=== PATIENT | female | born 1955 | race Caucasian/White ===

== ENCOUNTER 2016-08-04 15:45 | Emergency (ER) | payer SELFPAY ==
[~2016-08-04] VITALS: Ht 154.9 cm; Wt 93.0 kg
[~2016-08-04 15:45] MED LIST: ADDERALL 10 MG10 MG PO; CLINDAMYCIN HC300 MG PO; DOXYCYCLINE100 M3 PO; FEOSOL200 MG PO; LEXAPRO10 MG PO; LORAZEPAM0.5 MG PO
[2016-08-04] MEDS ORDERED: CLINDAMYCIN HC300 MG PO (16:22)
== END 2016-08-04 16:25 | disposition home or self-care (01) ==
LOC: ED 15:45
DX: L03.115 Cellulitis of right lower limb (principal); Z88.0 Allergy status to penicillin

== ENCOUNTER → 2017-03-24 | Outpatient (CLI) | payer OTHER | END | disposition home or self-care (01) | LOC: CARD 12:56 | DX: I10 Essential (primary) hypertension (principal) ==

== ENCOUNTER 2017-06-13 15:20 | Inpatient (IN) | payer OTHER ==
[~2017-06-13] VITALS: Ht 154.9 cm; Wt 79.8 kg
[2017-06-13 15:40] VITALS: BP 125/57
[2017-06-13 16:10] VITALS: BP 130/72
[2017-06-13 16:59] LABS: BASO % 0.8 % (0.0-1.0); EOS # 0.1 10*3/uL (0.0-0.4); EOS % 2.3 % (1.0-4.0); HEMATOCRIT 29.9 % (37.0-47.0); HEMOGLOBIN 10.1 g/dl (12.0-16.0); LYMPH # 1.7 10*3/uL (1.3-4.4); MEAN CELL VOLUME 97.7 fl (81.0-99.0); MEAN CORPUSCULAR HGB CONC 33.8 g/dl (33.0-37.0); MONO # 0.6 10*3/uL (0.1-1.0); MONO % 11.4 % (3.0-9.0); NEUT # 2.7 10*3/uL (2.3-7.9); NEUT % 52.9 % (47.0-73.0); PLATELET COUNT AUTOMATED 69 10*3/uL (130-400); RED BLOOD COUNT 3.06 10*6/uL (4.10-5.10); RED CELL DISTRI WIDTH 15.4 % (0-14.5); WHITE BLOOD COUNT 5.2 10*3/uL (4.8-10.8)
[2017-06-13 17:09] LABS: ACT PARTIAL THROMBO TIME 28.8 SECONDS (20.8-31.5); INTERNATIONAL NORM RATIO 1.1 (2.0-3.5)
[2017-06-13 17:14] LABS: ALBUMIN 2.4 gm/dl (3.1-4.5); ALKALINE PHOSPHATASE 127 U/L (45-117); BUN 16 mg/dl (7-24); CHLORIDE 105 mmol/L (98-107); CREATININE 0.77 mg/dL (0.55-1.02); POTASSIUM 2.8 mmol/L (3.5-5.1); SGOT/AST 167 IU/L (3-35); SGPT/ALT 95 U/L (12-78); SODIUM 142 mmol/L (136-145)
[2017-06-13 17:33] VITALS: BP 128/60
[2017-06-13 18:13] VITALS: BP 123/57
[2017-06-13] MEDS ORDERED: ADDERALL 20 MG20 MG PO (18:46)
[2017-06-13] MEDS ORDERED: HYDROCHLOROTHIA25 M1 PO (18:47)
[2017-06-13] MEDS ORDERED: LASIX20 MG PO (18:47)
[2017-06-13] MEDS ORDERED: IRON325 M1 PO (18:49)
[2017-06-13] MEDS ORDERED: Motrin,Rufen800 MG PO (18:49)
[2017-06-14] VITALS: BP 123/58
[2017-06-14 06:59] LABS: BASO % 0.5 % (0.0-1.0); EOS # 0.1 10*3/uL (0.0-0.4); EOS % 3.1 % (1.0-4.0); HEMATOCRIT 26.2 % (37.0-47.0); HEMOGLOBIN 9.1 g/dl (12.0-16.0); LYMPH # 1.4 10*3/uL (1.3-4.4); LYMPH % 34.9 % (27.0-41.0); MEAN CELL VOLUME 96.7 fl (81.0-99.0); MEAN CORPUSCULAR HGB 33.6 pg (27.0-31.0); MEAN CORPUSCULAR HGB CONC 34.7 g/dl (33.0-37.0); MONO # 0.5 10*3/uL (0.1-1.0); MONO % 12.5 % (3.0-9.0); NEUT # 1.9 10*3/uL (2.3-7.9); NEUT % 48.7 % (47.0-73.0); PLATELET COUNT AUTOMATED 61 10*3/uL (130-400); RED BLOOD COUNT 2.71 10*6/uL (4.10-5.10); RED CELL DISTRI WIDTH 15.3 % (0-14.5); WHITE BLOOD COUNT 3.9 10*3/uL (4.8-10.8)
[2017-06-14 07:35] LABS: ALBUMIN 2.1 gm/dl (3.1-4.5); BUN 16 mg/dl (7-24); CHLORIDE 107 mmol/L (98-107); CHOLESTEROL 114 mg/dL (<200); CREATININE 0.74 mg/dL (0.55-1.02); POTASSIUM 3.3 mmol/L (3.5-5.1); SGOT/AST 148 IU/L (3-35); SODIUM 142 mmol/L (136-145)
[2017-06-14 07:42] LABS: ACT PARTIAL THROMBO TIME 29.7 SECONDS (20.8-31.5); INTERNATIONAL NORM RATIO 1.2 (2.0-3.5)
[2017-06-14 07:44] LABS: ALKALINE PHOSPHATASE 107 U/L (45-117); FREE T4 1.22 ng/dl (0.76-1.46); HDL CHOLESTEROL 28 mg/dl (40-60); LDL CHOLESTEROL 73 mg/dL (9-159); PHOSPHOROUS 2.4 mg/dL (2.5-4.9); SGPT/ALT 80 U/L (12-78); TRIGLYCERIDES 66 mg/dl (<150); VLDL CHOLESTEROL 13 mg/dL (6-40)
[2017-06-14 07:56] LABS: VITAMIN D, 25-HYDROXY 43.6 ng/mL (30-100)
[2017-06-14 08:00] VITALS: BP 124/50
[2017-06-14 12:00] VITALS: BP 115/48
[2017-06-14 16:00] VITALS: BP 128/54
[2017-06-14 20:00] VITALS: BP 120/55
[2017-06-15] VITALS: BP 127/53
[2017-06-15 06:51] LABS: BASO % 0.8 % (0.0-1.0); EOS # 0.2 10*3/uL (0.0-0.4); EOS % 4.2 % (1.0-4.0); HEMATOCRIT 26.1 % (37.0-47.0); HEMOGLOBIN 9.3 g/dl (12.0-16.0); LYMPH # 1.7 10*3/uL (1.3-4.4); LYMPH % 45.1 % (27.0-41.0); MEAN CELL VOLUME 95.3 fl (81.0-99.0); MEAN CORPUSCULAR HGB 33.9 pg (27.0-31.0); MEAN CORPUSCULAR HGB CONC 35.6 g/dl (33.0-37.0); MONO # 0.4 10*3/uL (0.1-1.0); NEUT # 1.5 10*3/uL (2.3-7.9); NEUT % 38.6 % (47.0-73.0); PLATELET COUNT AUTOMATED 58 10*3/uL (130-400); RED BLOOD COUNT 2.74 10*6/uL (4.10-5.10); RED CELL DISTRI WIDTH 15.2 % (0-14.5); WHITE BLOOD COUNT 3.8 10*3/uL (4.8-10.8)
[2017-06-15 07:18] LABS: ALBUMIN 2.2 gm/dl (3.1-4.5); ALKALINE PHOSPHATASE 121 U/L (45-117); BUN 14 mg/dl (7-24); CHLORIDE 106 mmol/L (98-107); CREATININE 0.64 mg/dL (0.55-1.02); POTASSIUM 3.3 mmol/L (3.5-5.1); SGOT/AST 151 IU/L (3-35); SGPT/ALT 82 U/L (12-78); SODIUM 138 mmol/L (136-145); TOTAL PROTEIN 7.2 gm/dL (6.4-8.2)
[2017-06-15 08:00] VITALS: BP 110/58
[2017-06-15] MEDS ORDERED: CLEOCIN HCL300 MG PO (09:18)
== END 2017-06-15 09:56 | disposition home or self-care (01) | DRG 602 ==
LOC: ED 15:20 → EDHOLD 17:06 → 5E 17:06
PROVIDERS: Emergency Medicine; Family Medicine
DX: L03.115 Cellulitis of right lower limb (principal); E43 Unspecified severe protein-calorie malnutrition; D69.6 Thrombocytopenia, unspecified; E87.2 Acidosis; I73.9 Peripheral vascular disease, unspecified; E83.39 Other disorders of phosphorus metabolism; E87.6 Hypokalemia; F90.9 Attention-deficit hyperactivity disorder, unspecified type; B19.20 Unspecified viral hepatitis C without hepatic coma; L40.9 Psoriasis, unspecified; F41.1 Generalized anxiety disorder; F32.9 Major depressive disorder, single episode, unspecified; D64.9 Anemia, unspecified; R74.0 Nonspecific elevation of levels of transaminase and lactic acid dehydrogenase [LDH]; R73.9 Hyperglycemia, unspecified; Z72.0 Tobacco use; Z71.6 Tobacco abuse counseling; Z88.0 Allergy status to penicillin; Z88.8 Allergy status to other drugs, medicaments and biological substances; Z79.2 Long term (current) use of antibiotics; Z79.899 Other long term (current) drug therapy; Z68.33 Body mass index [BMI] 33.0-33.9, adult

== ENCOUNTER 2017-07-03 16:34 | Emergency (ER) | payer OTHER ==
[~2017-07-03] VITALS: Wt 72.6 kg
[~2017-07-03 16:34] MED LIST changes: +ADDERALL 20 MG20 MG PO; +CLEOCIN HCL300 MG PO; +HYDROCHLOROTHIA25 M1 PO; +IRON325 M1 PO; +LASIX20 MG PO; +Motrin,Rufen800 MG PO
[2017-07-03] MEDS ORDERED: ZITHROMAX250 MG PO (18:04)
[2017-07-03] MEDS ORDERED: PROAIR HFA8.5 GM INH (18:04)
== END 2017-07-03 18:07 | disposition home or self-care (01) ==
LOC: ED 16:34
DX: J40 Bronchitis, not specified as acute or chronic (principal); R73.9 Hyperglycemia, unspecified; F41.1 Generalized anxiety disorder; F32.9 Major depressive disorder, single episode, unspecified; L40.9 Psoriasis, unspecified; F90.9 Attention-deficit hyperactivity disorder, unspecified type; F17.200 Nicotine dependence, unspecified, uncomplicated; F10.10 Alcohol abuse, uncomplicated; Z88.0 Allergy status to penicillin; Z90.49 Acquired absence of other specified parts of digestive tract; Z79.899 Other long term (current) drug therapy

== ENCOUNTER → 2017-08-22 | Outpatient (CLI) | payer OTHER ==
[~2017-08-22] MED LIST changes: +PROAIR HFA8.5 GM INH; +ZITHROMAX250 MG PO
== END | disposition home or self-care (01) ==
LOC: US 09:24
DX: R94.5 Abnormal results of liver function studies (principal); Z90.49 Acquired absence of other specified parts of digestive tract

== ENCOUNTER → 2017-10-21 | Day surgery (SDC) | payer OTHER ==
[~2017-10-21] VITALS: Ht 154.9 cm; Wt 72.6 kg
[~2017-10-21] MED LIST changes: +PROPRANOLOL HCL10 MG PO
--- NOTE | ~2017-10-21 | PROC NOTE ---
[place], [place] PROCEDURE NOTE NAME: ANEUDY CROOKS [facility] #: [id number] UNIT #: [id number] ROOM: DOCTOR: CHYNA WHITING MD BIRTHDATE: [birth year] DOS: 10/21/2017 PROCEDURE: 1. Esophagogastroduodenoscopy and biopsy. 2. Colonoscopy. INDICATIONS: Hepatitis C, abdominal pain and colon cancer screening. An informed consent was obtained from the patient after the indication of procedures, alternatives, and potential complications were explained to her. PROCEDURE MEDICATION: Sedation was administered by Anesthesiology Department. Scope used was Olympus pediatric colonoscope variable stiffness GIF-180, depth of insertion with upper endoscopy was to descending duodenum; with the colonoscopy was to the cecum, which was identified by the usual landmarks, appendiceal orifice, ileocecal valve and triangular fold, in addition to transillumination in the right lower quadrant. FINDINGS: After adequate sedation, the patient was placed in left lateral decubitus position. Scope was introduced under direct visualization through the upper esophageal sphincter into the esophagus. Esophageal mucosa showed evidence of esophageal varices grade 2 with two columns extending from 36 to 33 cm. Stomach was then intubated. Gastric mucosa inspected. Mild portal gastropathy pattern was noted in addition to marked gastritis. A LASHAWN test was performed from the gastric antrum and body. On retroflexed views in the fundus, no hiatal hernia was seen. The pylorus was intubated easily. The duodenal bulb and descending duodenum were within normal range. Scope was then withdrawn after the stomach was decompressed. We then proceeded with the colonoscopy. Rectal examination showed a diminished sphincter tone and no external hemorrhoids. Scope was introduced into the rectum, then advanced to the cecum with slight difficulty due to looping of the left colon. The prep was adequate. Moderate left-sided diverticular disease was seen. The remaining colon mucosa appeared normal with no evidence of polyps, ulcerations or obstructing lesions. Retroflexed views in the rectum were unremarkable. The scope was then withdrawn after the rectum was decompressed. The patient tolerated the procedures well. IMPRESSION: 1. Esophageal varices, grade 2. 2. Mild portal gastropathy. 3. Severe gastritis, LASHAWN test performed. 4. Moderate left-sided diverticular disease. 5. Normal colon mucosa otherwise, no polyp seen. PLAN: We will start Inderal 10 mg t.i.d. We will review the LASHAWN test results and treat the patient accordingly. Repeat screening colonoscopy advised in 10 years. Office followup will be scheduled in 2-3 weeks. [place], [place] PROCEDURE NOTE NAME: ANEUDY CROOKS UNIT #: [id number] ROOM: DOCTOR: CHYNA WHITING MD BIRTHDATE: [birth year] CHYNA WHITING MD CM:PROCNOTE:PROCEDURE NOTE [id number] CHYNA HWITING MD
[2017-10-21 08:45] VITALS: BP 108/42
[2017-10-21 09:40] VITALS: BP 119/74
[2017-10-21 09:55] VITALS: BP 115/54
[2017-10-21 10:10] VITALS: BP 109/43
== END | disposition home or self-care (01) ==
LOC: SDC 10-18 13:15
DX: K57.30 Diverticulosis of large intestine without perforation or abscess without bleeding (principal); K29.70 Gastritis, unspecified, without bleeding; K31.9 Disease of stomach and duodenum, unspecified; I85.00 Esophageal varices without bleeding; I10 Essential (primary) hypertension; J45.909 Unspecified asthma, uncomplicated; B19.20 Unspecified viral hepatitis C without hepatic coma; M19.90 Unspecified osteoarthritis, unspecified site; F32.9 Major depressive disorder, single episode, unspecified; F41.9 Anxiety disorder, unspecified; F17.210 Nicotine dependence, cigarettes, uncomplicated; Z79.899 Other long term (current) drug therapy; Z98.890 Other specified postprocedural states; Z88.0 Allergy status to penicillin; Z88.8 Allergy status to other drugs, medicaments and biological substances; Z90.49 Acquired absence of other specified parts of digestive tract

== ENCOUNTER → 2018-03-16 | Outpatient (CLI) | payer OTHER ==
[2018-03-16 15:14] LABS: BASO # 0.1 10*3/uL (0.0-0.1); BASO % 0.9 % (0.0-1.0); EOS # 0.3 10*3/uL (0.0-0.4); EOS % 4.5 % (1.0-4.0); HEMATOCRIT 35.1 % (37.0-47.0); HEMOGLOBIN 11.5 g/dl (12.0-16.0); LYMPH # 2.4 10*3/uL (1.3-4.4); LYMPH % 41.9 % (27.0-41.0); MEAN CELL VOLUME 102.3 fl (81.0-99.0); MEAN CORPUSCULAR HGB 33.5 pg (27.0-31.0); MEAN CORPUSCULAR HGB CONC 32.8 g/dl (33.0-37.0); MEAN PLATELET VOLUME 11.6 fl (9.6-12.3); MONO # 0.7 10*3/uL (0.1-1.0); MONO % 12.7 % (3.0-9.0); NEUT # 2.3 10*3/uL (2.3-7.9); NEUT % 39.8 % (47.0-73.0); PLATELET COUNT AUTOMATED 83 10*3/uL (130-400); RED BLOOD COUNT 3.43 10*6/uL (4.10-5.10); RED CELL DISTRI WIDTH 15.2 % (0-14.5); WHITE BLOOD COUNT 5.8 10*3/uL (4.8-10.8)
[2018-03-16 15:21] LABS: INTERNATIONAL NORM RATIO 1.1 (2.0-3.5)
[2018-03-16 15:27] LABS: ALBUMIN 2.6 gm/dl (3.1-4.5); ALKALINE PHOSPHATASE 187 U/L (45-117); BUN 11 mg/dl (7-24); CHLORIDE 110 mmol/L (98-107); CREATININE 0.78 mg/dL (0.55-1.02); SGOT/AST 140 IU/L (3-35); SGPT/ALT 101 U/L (12-78); SODIUM 142 mmol/L (136-145); TOTAL PROTEIN 7.8 gm/dL (6.4-8.2); URINE AMPHETAMINES > 1000 (1000ng/ml); URINE BARBITURATES < 200 (200ng/ml); URINE BENZODIAZEPINES < 200 (200ng/ml); URINE CANNABINOIDS (THC) < 50 (50ng/ml); URINE COCAINE < 300 (300ng/ml); URINE METHADONE < 300 (300ng/ml); URINE OPIATES < 300 (300ng/ml)
[2018-03-16 15:29] LABS: URINE PHENCYCLIDINE < 25 (25ng/ml)
[2018-03-18 00:08] LABS: HCV LOG10 6.107 (.); HEPATITIS C QNT 1280000 IU/mL (.)
== END | disposition home or self-care (01) ==
LOC: LAB 14:26
PROVIDERS: Internal Medicine Gastroenterology
DX: B18.2 Chronic viral hepatitis C (principal)

== ENCOUNTER → 2020-02-07 | Outpatient (CLI) | payer OTHER | END | disposition home or self-care (01) | LOC: CARD 16:43 | DX: Z01.818 Encounter for other preprocedural examination (principal); Z79.899 Other long term (current) drug therapy ==

== ENCOUNTER 2020-10-01 13:51 | Inpatient (IN) | payer SELFPAY ==
[~2020-10-01] VITALS: Ht 160 cm; Wt 83.6 kg
[2020-10-01 13:56] VITALS: BP 140/54
[2020-10-01 14:17] LABS: BASO # 0.1 10*3/uL (0.0-0.1); EOS # 0.4 10*3/uL (0.0-0.4); EOS % 5.5 % (1.0-4.0); HEMATOCRIT 26.4 % (37.0-47.0); LYMPH # 1.4 10*3/uL (1.3-4.4); LYMPH % 18.4 % (27.0-41.0); MEAN CORPUSCULAR HGB 30.6 pg (27.0-31.0); MEAN PLATELET VOLUME 12.2 fl (9.6-12.3); MONO # 0.9 10*3/uL (0.1-1.0); NEUT # 4.8 10*3/uL (2.3-7.9); NEUT % 62.7 % (47.0-73.0); PLATELET COUNT AUTOMATED 205 10*3/uL (130-400); RED BLOOD COUNT 2.84 10*6/uL (4.10-5.10); RED CELL DISTRI WIDTH 17.2 % (0-14.5); WHITE BLOOD COUNT 7.7 10*3/uL (4.8-10.8)
[2020-10-01 14:59] LABS: ACT PARTIAL THROMBO TIME 25.1 SECONDS (20.0-32.1); INTERNATIONAL NORM RATIO 1.2 (2.0-3.5)
[2020-10-01 15:00] LABS: ALBUMIN 2.3 gm/dl (3.1-4.5); ALKALINE PHOSPHATASE 138 U/L (45-117); BUN 22 mg/dl (7-24); CHLORIDE 110 mmol/L (98-107); LIPASE 212 U/L (73-393); POTASSIUM 3.7 mmol/L (3.5-5.1); SGOT/AST 136 IU/L (3-35); SGPT/ALT 40 U/L (12-78); SODIUM 137 mmol/L (136-145); TOTAL PROTEIN 7.7 gm/dL (6.4-8.2)
[2020-10-01 15:15] LABS: TROPONIN I < 0.015 ng/ml (<0.045)
[2020-10-01 15:30] VITALS: BP 142/62
[2020-10-01 17:30] VITALS: BP 154/74
[2020-10-01 19:30] VITALS: BP 139/57
[2020-10-01] MEDS ORDERED: ALDACTONE25 MG PO (20:25)
[2020-10-01] MEDS ORDERED: POTASSIUM CHLO10 ME4 PO (20:25)
[2020-10-02] VITALS: BP 132/54
[2020-10-02 08:00] VITALS: BP 110/60
[2020-10-02 09:26] LABS: HEMATOCRIT 23.3 % (37.0-47.0); MEAN CELL VOLUME 94.7 fl (81.0-99.0); MEAN CORPUSCULAR HGB 30.9 pg (27.0-31.0); MEAN CORPUSCULAR HGB CONC 32.6 g/dl (33.0-37.0); MEAN PLATELET VOLUME 11.4 fl (9.6-12.3); PLATELET COUNT AUTOMATED 153 10*3/uL (130-400); RED BLOOD COUNT 2.46 10*6/uL (4.10-5.10); RED CELL DISTRI WIDTH 17.5 % (0-14.5); WHITE BLOOD COUNT 8.5 10*3/uL (4.8-10.8)
[2020-10-02 09:41] LABS: ALBUMIN 2.1 gm/dl (3.1-4.5); ALKALINE PHOSPHATASE 138 U/L (45-117); BUN 26 mg/dl (7-24); CHLORIDE 108 mmol/L (98-107); CHOLESTEROL 98 mg/dL (<200); CREATININE 0.92 mg/dL (0.55-1.02); IRON 59 ug/dL (50-170); LDL CHOLESTEROL 69 mg/dL (9-159); POTASSIUM 4.2 mmol/L (3.5-5.1); SGOT/AST 137 IU/L (3-35); SGPT/ALT 38 U/L (12-78); SODIUM 137 mmol/L (136-145); TOTAL IRON BINDING CAPACITY 223 ug/dl (250-450); TOTAL PROTEIN 7.5 gm/dL (6.4-8.2); TRIGLYCERIDES 79 mg/dl (<150)
[2020-10-02 09:46] LABS: TOTAL CELLS COUNTED 100 #CELLS
[2020-10-02 09:47] LABS: PLATELET SUFFICIENCY NORMAL (NORMAL); POLYCHROMASIA SLIGHT; ROULEAUX SLIGHT
[2020-10-02 10:31] LABS: FERRITIN 192.6 ng/mL (10.0-291.0)
[2020-10-02 12:00] VITALS: BP 113/58
[2020-10-02 16:00] VITALS: BP 127/53
[2020-10-02 18:20] LABS: BASO # 0.1 10*3/uL (0.0-0.1); BASO % 0.5 % (0.0-1.0); EOS # 0.3 10*3/uL (0.0-0.4); EOS % 3.1 % (1.0-4.0); HEMATOCRIT 22.7 % (37.0-47.0); LYMPH # 2.1 10*3/uL (1.3-4.4); LYMPH % 21.3 % (27.0-41.0); MEAN CELL VOLUME 94.6 fl (81.0-99.0); MEAN CORPUSCULAR HGB 30.4 pg (27.0-31.0); MEAN CORPUSCULAR HGB CONC 32.2 g/dl (33.0-37.0); MEAN PLATELET VOLUME 12.1 fl (9.6-12.3); MONO # 1.1 10*3/uL (0.1-1.0); MONO % 10.9 % (3.0-9.0); NEUT # 6.3 10*3/uL (2.3-7.9); NEUT % 63.8 % (47.0-73.0); PLATELET COUNT AUTOMATED 155 10*3/uL (130-400); RED CELL DISTRI WIDTH 17.4 % (0-14.5); WHITE BLOOD COUNT 9.9 10*3/uL (4.8-10.8)
[2020-10-02 20:00] VITALS: BP 121/50
[2020-10-03] VITALS (13 sets, daily range): BP systolic 100–129; BP diastolic 49–62
[2020-10-03 06:21] LABS: MEAN CELL VOLUME 95.2 fl (81.0-99.0); MEAN CORPUSCULAR HGB 30.5 pg (27.0-31.0); MEAN PLATELET VOLUME 11.7 fl (9.6-12.3); PLATELET COUNT AUTOMATED 124 10*3/uL (130-400); RED CELL DISTRI WIDTH 17.9 % (0-14.5); WHITE BLOOD COUNT 7.3 10*3/uL (4.8-10.8)
[2020-10-03 06:42] LABS: ALKALINE PHOSPHATASE 119 U/L (45-117); BUN 24 mg/dl (7-24); CHLORIDE 107 mmol/L (98-107); CREATININE 0.88 mg/dL (0.55-1.02); SGOT/AST 136 IU/L (3-35); SGPT/ALT 37 U/L (12-78); SODIUM 134 mmol/L (136-145); TOTAL PROTEIN 6.9 gm/dL (6.4-8.2)
[2020-10-03 06:45] LABS: ALBUMIN 1.9 gm/dl (3.1-4.5)
[2020-10-03 07:16] LABS: ATYPICAL LYMPHS 2 % (0-0); BASOPHILS 1 % (0-1); TOTAL CELLS COUNTED 100 #CELLS
[2020-10-03 07:17] LABS: PLATELET SUFFICIENCY LOW (NORMAL); POLYCHROMASIA SLIGHT
== END 2020-10-03 18:15 | disposition short-term general hospital (02) | DRG 175 ==
LOC: ED 13:51 → EDHOLD 16:55 → 5E 16:55 → EDHOLD 16:55 → 5E 17:32
PROVIDERS: Emergency Medicine; Student in an Organized Health Care Education/Training Program; ADMIT Internal Medicine; ATTEND Internal Medicine
PROC: 30233N1 Transfusion of Nonautologous Red Blood Cells into Peripheral Vein, Percutaneous Approach (ICD-10-PCS; principal; 2020-10-03)
DX: I26.99 Other pulmonary embolism without acute cor pulmonale (principal); E43 Unspecified severe protein-calorie malnutrition; D68.59 Other primary thrombophilia; F41.1 Generalized anxiety disorder; L40.9 Psoriasis, unspecified; B19.20 Unspecified viral hepatitis C without hepatic coma; E66.9 Obesity, unspecified; F32.9 Major depressive disorder, single episode, unspecified; D64.9 Anemia, unspecified; F90.9 Attention-deficit hyperactivity disorder, unspecified type; R74.01 Elevation of levels of liver transaminase levels; R91.8 Other nonspecific abnormal finding of lung field; F17.200 Nicotine dependence, unspecified, uncomplicated; I10 Essential (primary) hypertension; I73.9 Peripheral vascular disease, unspecified; Z90.49 Acquired absence of other specified parts of digestive tract; Z80.0 Family history of malignant neoplasm of digestive organs; Z79.899 Other long term (current) drug therapy; Z88.0 Allergy status to penicillin; Z79.1 Long term (current) use of non-steroidal anti-inflammatories (NSAID); Z68.32 Body mass index [BMI] 32.0-32.9, adult

== ENCOUNTER 2020-10-31 17:47 | Emergency (ER) | payer SELFPAY ==
[~2020-10-31] VITALS: Ht 165.1 cm; Wt 83.9 kg
[~2020-10-31 17:47] MED LIST changes: +ALDACTONE25 MG PO; +POTASSIUM CHLO10 ME4 PO
[2020-10-31 18:12] LABS: BASO % 0.3 % (0.0-1.0); EOS # 0.1 10*3/uL (0.0-0.4); EOS % 1.5 % (1.0-4.0); HEMATOCRIT 28.3 % (37.0-47.0); LYMPH # 1.1 10*3/uL (1.3-4.4); LYMPH % 12.9 % (27.0-41.0); MEAN CELL VOLUME 97.9 fl (81.0-99.0); MEAN CORPUSCULAR HGB 31.1 pg (27.0-31.0); MEAN CORPUSCULAR HGB CONC 31.8 g/dl (33.0-37.0); MEAN PLATELET VOLUME 10.5 fl (9.6-12.3); MONO # 0.8 10*3/uL (0.1-1.0); MONO % 8.6 % (3.0-9.0); NEUT # 6.8 10*3/uL (2.3-7.9); NEUT % 76.4 % (47.0-73.0); PLATELET COUNT AUTOMATED 126 10*3/uL (130-400); RED BLOOD COUNT 2.89 10*6/uL (4.10-5.10); RED CELL DISTRI WIDTH 22.8 % (0-14.5); WHITE BLOOD COUNT 8.8 10*3/uL (4.8-10.8)
[2020-10-31 18:30] LABS: ALBUMIN 1.4 gm/dl (3.1-4.5); ALKALINE PHOSPHATASE 256 U/L (45-117); BUN 42 mg/dl (7-24); CHLORIDE 104 mmol/L (98-107); CREATININE 2.44 mg/dL (0.55-1.02); POTASSIUM 4.8 mmol/L (3.5-5.1); SGOT/AST 380 IU/L (3-35); SGPT/ALT 85 U/L (12-78); SODIUM 132 mmol/L (136-145); TOTAL PROTEIN 7.8 gm/dL (6.4-8.2); TROPONIN I < 0.015 ng/ml (<0.045)
[2020-10-31 19:56] LABS: BILIRUBIN 3+ (Negative); BLOOD Negative (Negative); CLARITY Cloudy (Clear); COLOR Dark Yellow (Yellow); GLUCOSE Negative (Negative); KETONE Negative (Negative); LEUKO ESTERASE 1+ (Negative); NITRITE Positive (Negative)
[2020-10-31 20:08] LABS: EPITHELIAL CELLS 31-40; MUCOUS 1+; WBC 16-20 wbc/hpf (0-5)
[2020-11-01 08:24] LABS: BASO % 0.1 % (0.0-1.0); EOS # 0.1 10*3/uL (0.0-0.4); EOS % 1.8 % (1.0-4.0); HEMATOCRIT 27.4 % (37.0-47.0); LYMPH # 1.4 10*3/uL (1.3-4.4); MEAN CELL VOLUME 98.2 fl (81.0-99.0); MEAN CORPUSCULAR HGB 31.2 pg (27.0-31.0); MEAN CORPUSCULAR HGB CONC 31.8 g/dl (33.0-37.0); MEAN PLATELET VOLUME 10.9 fl (9.6-12.3); MONO # 0.2 10*3/uL (0.1-1.0); NEUT # 5.9 10*3/uL (2.3-7.9); NEUT % 76.8 % (47.0-73.0); PLATELET COUNT AUTOMATED 117 10*3/uL (130-400); RED BLOOD COUNT 2.79 10*6/uL (4.10-5.10); RED CELL DISTRI WIDTH 22.7 % (0-14.5); WHITE BLOOD COUNT 7.7 10*3/uL (4.8-10.8)
[2020-11-01 08:37] LABS: CREATININE 2.86 mg/dL (0.55-1.02); POTASSIUM 4.8 mmol/L (3.5-5.1)
[2020-11-01 08:49] LABS: BODY FLUID WBC 179 /uL
[2020-11-01 09:26] LABS: BF LYMPHOCYTES 20 %; BF MACROPHAGES 41 %; BF MESOTHELIALS 2 %; BF NEUTROPHILS 37 %
[2020-11-01 09:49] LABS: ARTERIAL BLOOD GAS PH 7.285 (7.35-7.45)
[2020-11-01 09:53] LABS: ABG BASE EXCESS -11.8 mmol/L (-2.0-2.0)
== END 2020-11-01 14:10 | disposition short-term general hospital (02) ==
LOC: ED 17:47
PROVIDERS: Emergency Medicine; Family Medicine; Physician Assistant
DX: J18.9 Pneumonia, unspecified organism (principal); R18.8 Other ascites; K72.90 Hepatic failure, unspecified without coma; K76.7 Hepatorenal syndrome; E16.2 Hypoglycemia, unspecified; E87.2 Acidosis